=== PATIENT | female | born 2000 | race Two or more races ===

== ENCOUNTER 2019-10-03 19:11 | Emergency (ER) | payer MEDICAID ==
[~2019-10-03] VITALS: Ht 157.5 cm; Wt 61.2 kg
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
[2019-10-03 19:21] VITALS: BP 99/67
[2019-10-03] MEDS ORDERED: Methocarbamol 500mg tab ORAL ONE (19:30)
--- NOTE | 2019-10-03 19:50 | NUR ---
ED Nurse Note: pt went to XRAY
--- NOTE | 2019-10-03 20:06 | NUR ---
ED Nurse Note: pt returned from xray
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
[2019-10-03] MEDS ORDERED: IBUPROFEN600 MG ORAL (20:21)
[2019-10-03] MEDS ORDERED: ROBAXIN-750750 MG PO (20:21)
[2019-10-03] MEDS ORDERED: LIDODERM700 M1 TOPIC (20:21)
[2019-10-03 20:29] VITALS: BP 112/76
--- NOTE | 2019-10-03 20:30 | NUR ---
ER DISCHARGE NOTE: Patient is cleared to be discharged per ERMD, pt is aox4, on room air, with stable vital signs. pt was given dc and prescription instructions, pt was able to verbalize understanding, pt id band removed pt is able to ambulate with steady gait. pt took all belongings.
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
== END 2019-10-03 20:26 | disposition home or self-care (01) ==
LOC: EDBD 19:11 → EMR 20:15
DX: M54.5 Low back pain (principal); S39.012A Strain of muscle, fascia and tendon of lower back, initial encounter; V43.52XA Car driver injured in collision with other type car in traffic accident, initial encounter; Y92.410 Unspecified street and highway as the place of occurrence of the external cause
CPT/HCPCS: 72020; 81025; Z7502; 99283